=== PATIENT | female | born 1990 | race Caucasian/White ===

== ENCOUNTER 2017-12-22 20:22 | Emergency (ER) | payer OTHER ==
[2017-12-22] MEDS ORDERED: HYDROCODONE/APAP 5/325 MG TAB ONE (20:57)
[2017-12-22 21:39] LABS: Absolute Lymphocytes (CBC) 3.3 K/uL (0.7-4.9); Absolute Monocytes 0.6 K/uL (0.1-1.3); Absolute Neutrophil 8.2 K/uL (1.8-8.0); Basophils % 0.6 % (0-1.3); Hematocrit 40.3 % (36.0-45.0); Lymphocytes % 26.6 % (15.3-44.8); MCH 24.6 pg (27.0-35.0); MCV 76.8 fL (80-100); MPV 10.6 fL (7.6-11.3); Monocytes % 5.1 % (3.3-12.3); RBC Red Blood Cell Count 5.25 M/uL (3.86-4.86)
[2017-12-22 21:45] LABS: Urine Blood NEGATIVE (NEG); Urine Glucose NEGATIVE (NEG); Urine Protein 1+ (NEG); Urine pH 5.5 (5.0-7.0)
[2017-12-22] MEDS ORDERED: KETOROLAC 30 MG/ML INJ ONE (21:53)
[2017-12-22 21:54] LABS: Protime INR 1.08
[2017-12-22 22:12] LABS: ALT/SGPT 17 U/L (12-78); AST/SGOT 19 U/L (15-37); Albumin 4.1 g/dL (3.4-5.0); Alkaline Phosphatase 55 U/L (45-117); BUN Blood Urea Nitrogen 12 mg/dL (7-18); Bicarbonate 24 mmol/L (21-32); Bilirubin Direct 0.1 mg/dL (0-0.2); Bilirubin Total 0.7 mg/dL (0.2-1.0); CKMB Creatine Kinase MB < 1.0 ng/mL (0.3-3.6); Creatine Phosphokinase 70 U/L (26-192); Glucose Level 101 mg/dL (74-106); NT PRO-BNP 14 pg/mL (<125); Potassium 3.8 mmol/L (3.5-5.1); Protein, Total 8.4 g/dL (6.4-8.2); Sodium Level 138 mmol/L (136-145)
--- NOTE | 2017-12-22 23:02 | RAD REPORT ---
EXAM DESCRIPTION: RAD - Chest Single View - 12/22/2017 10:00 pm CLINICAL HISTORY: CHEST PAIN Chest pain. COMPARISON: No comparisons FINDINGS: Portable technique limits examination quality. The lungs are grossly clear. The heart is normal in size. No displaced fractures. IMPRESSION: No acute intrathoracic process suspected.
--- NOTE | 2017-12-22 23:09 | EDPHYS ---
Physician Documentation [facility] Name: Blanca Geller Age: 27 yrs Sex: Female : 1990 Arrival Date: 12/22/2017 Time: 20:26 Bed 26 Private MD: ED Physician Anand Hassan HPI: 12/22 20:49 This 27 yrs old Female presents to ER via Wheelchair with complaints of Chest kav Pain. 20:49 Onset: The symptoms/episode began/occurred acutely, 2 hour(s) ago. Associated signs and kav symptoms: The patient has no apparent associated signs or symptoms, Pertinent negatives: abdominal pain, fever, headache. Modifying factors: The patient symptoms are alleviated by nothing, the patient symptoms are aggravated by nothing. The patient has not experienced similar symptoms in the past. The patient has not recently seen a physician. 20:50 The patient or guardian reports chest pain that is located primarily in the substernal kav area. The pain does not radiate. The chest pain is described as stabbing. Duration: The patient or guardian reports a single episode, that is still ongoing. Modifying factors: The symptoms are alleviated by nothing. Severity of pain: At its worst the pain was moderate just prior to arrival. Chest pain occurred with activity at work.. 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 - Social history:: Smoking status: Patient/guardian denies using tobacco. - Ebola Screening: : No symptoms or risks identified at this time. - Family history:: not pertinent. - Hospitalizations: : No recent hospitalization is reported. ROS: 21:02 Constitutional: Negative for fever, chills, and weight loss, Eyes: Negative for injury, kav pain, redness, and discharge, ENT: Negative for injury, pain, and discharge, Neck: Negative for injury, pain, and swelling, Respiratory: Negative for shortness of breath, cough, wheezing, and pleuritic chest pain, Abdomen/GI: Negative for abdominal pain, nausea, vomiting, diarrhea, and constipation, Back: Negative for injury and pain, : Negative for injury, bleeding, discharge, and swelling, MS/Extremity: Negative for injury and deformity, Skin: Negative for injury, rash, and discoloration, Neuro: Negative for headache, weakness, numbness, tingling, and seizure, Psych: Negative for depression, anxiety, suicide ideation, homicidal ideation, and hallucinations, Allergy/Immunology: Negative for hives, rash, and allergies, Endocrine: Negative for neck swelling, polydipsia, polyuria, polyphagia, and marked weight changes, Hematologic/Lymphatic: Negative for swollen nodes, abnormal bleeding, and unusual bruising. 21:02 Cardiovascular: Positive for chest pain, of the left breast. Exam: 21:02 Constitutional: This is a well developed, well nourished patient who is awake, alert, kav and in no acute distress. Head/Face: Normocephalic, atraumatic. Eyes: Pupils equal round and reactive to light, extra-ocular motions intact. Lids and lashes normal. Conjunctiva and sclera are non-icteric and not injected. Cornea within normal limits. Periorbital areas with no swelling, redness, or edema. ENT: Nares patent. No nasal discharge, no septal abnormalities noted. Tympanic membranes are normal and external auditory canals are clear. Oropharynx with no redness, swelling, or masses, exudates, or evidence of obstruction, uvula midline. Mucous membranes moist. Neck: Trachea midline, no thyromegaly or masses palpated, and no cervical lymphadenopathy. Supple, full range of motion without nuchal rigidity, or vertebral point tenderness. No Meningismus. Chest/axilla: Normal chest wall appearance and motion. Nontender with no deformity. No lesions are appreciated. Respiratory: Lungs have equal breath sounds bilaterally, clear to auscultation and percussion. No rales, rhonchi or wheezes noted. No increased work of breathing, no retractions or nasal flaring. Abdomen/GI: Soft, non-tender, with normal bowel sounds. No distension or tympany. No guarding or rebound. No evidence of tenderness throughout. Back: No spinal tenderness. No costovertebral tenderness. Full range of motion. Skin: Warm, dry with normal turgor. Normal color with no rashes, no lesions, and no evidence of cellulitis. MS/ Extremity: Pulses equal, no cyanosis. Neurovascular intact. Full, normal range of motion. Neuro: Awake and alert, GCS 15, oriented to person, place, time, and situation. Cranial nerves II-XII grossly intact. Motor strength 5/5 in all extremities. Sensory grossly intact. Cerebellar exam normal. Normal gait. Psych: Awake, alert, with orientation to person, place and time. Behavior, mood, and affect are within normal limits. 21:02 Cardiovascular: Rate: normal. 21:02 ECG was reviewed by the Attending Physician. nsr Vital Signs: 20:34 BP 140 / 95; Pulse 84; Resp 18; Temp 98.4(O); Pulse Ox 100% on R/A; Weight 97.52 kg; lp1 Height 5 ft. 7 in. (170.18 cm); Pain 9/10; 21:30 BP 136 / 80; Pulse 67; Resp 13; Pulse Ox 100% on R/A; Pain 8/10; lp1 22:00 BP 119 / 77; Pulse 70; Resp 16; Pulse Ox 100% on R/A; lp1 22:45 BP 120 / 64; Pulse 68; Resp 18; Pulse Ox 99% on R/A; Pain 2/10; lp1 20:34 Body Mass Index 33.67 (97.52 kg, 170.18 cm) lp1 MDM: 20:27 Medical screening is not applicable. kav 21:02 Differential diagnosis: acute myocardial infarction, anxiety, chest wall pain. Data kav reviewed: vital signs, nurses notes. 21:23 ED course: awaiting lab work. kav 21:57 Transition of care: After a detail discussion of the patient's case, care is kav transferred to Anand [place]. 12/22 20:37 Order name: CBC with Diff; Complete Time: 21:49 [facility] 12/22 23:05 Interpretation: Normal except: WBC 12.5; RBC 5.25; MCV 76.8; MCH 24.6; RDW 16.2; NEUT A cp 8.2. 12/22 20:37 Order name: CMP; Complete Time: 23:04 ka 12/22 23:04 Interpretation: Normal except: TP 8.4; A/G 1.0; GLOB 4.3. cp 12/22 20:54 Order name: Ckmb; Complete Time: 23:04 [facility] 12/22 20:54 Order name: CPK; Complete Time: 23:04 v 12/22 20:54 Order name: LFT's; Complete Time: 23:04 v 12/22 20:54 Order name: Magnesium; Complete Time: 23:04 v 12/22 20:54 Order name: NT PRO-BNP; Complete Time: 23:04 v 12/22 20:54 Order name: PT-INR; Complete Time: 23:04 12/22 23:05 Interpretation: Abnormal: PT 12.8. cp 12/22 20:54 Order name: Ptt, Activated; Complete Time: 23:04 v 12/22 20:54 Order name: Troponin (emerg Dept Use Only); Complete Time: 23:v 12/22 20:54 Order name: XRAY Chest (1 view); Complete Time: 23:v 12/22 21:40 Order name: Urine Dipstick--Ancillary (enter results); Complete Time: 21:49 [facility] 12/22 23:05 Interpretation: Normal except: UKET 2+; UPROT 1+. cp 12/22 21:40 Order name: Urine --Ancillary (enter results); Complete Time: 21:49 2 12/22 20:37 Order name: Urine Dipstick-Ancillary (obtain specimen); Complete Time: 21:30 v 12/22 20:54 Order name: Urine Test (obtain specimen); Complete Time: 21:30 v 12/22 20:54 Order name: EKG; Complete Time: 21:18 v 12/22 20:54 Order name: Cardiac monitoring; Complete Time: 20:57 v 12/22 20:54 Order name: EKG - Nurse/Tech; Complete Time: 20:57 v 12/22 20:54 Order name: IV Saline Lock; Complete Time: 21:29 v 12/22 20:54 Order name: Labs collected and sent; Complete Time: 21:29 v 12/22 20:54 Order name: O2 Per Protocol; Complete Time: 20:57 v 12/22 20:54 Order name: O2 Sat Monitoring; Complete Time: 20:57 kav Administered Medications: 20:52 CANCELLED (wrong patient): Bactrim (160 mg-800 mg (DS) 1 tablet PO once kav 20:57 Drug: [place] 5 mg-325 mg 1 tabs Route: PO; lp1 21:30 Follow up: Response: Pain is unchanged, physician notified lp1 21:55 Drug: TORadol 30 mg Route: IVP; Site: right forearm; lp1 23:12 Follow up: Response: Pain is decreased lp1 Disposition: 12/23 06:54 Co-signature as Attending Physician, Anand Hassan MD I agree with the assessment and marcello plan of care. Disposition: 12/22/17 23:08 Discharged to Home. Impression: Chest pain, unspecified. - Condition is Stable. - Discharge Instructions: Nonspecific Chest Pain, Chest Wall Pain. - Prescriptions for Prilosec 20 mg Oral Capsule - take 1 capsule by ORAL route once daily; 10 capsule. ketorolac 10 mg Oral tablet - take 1 tablet by ORAL route every 8 hours for 5 days for up to 5 days total use; 15 tablet. - Work release form, Medication Reconciliation Form, Thank You Letter, Antibiotic Education, Prescription Opioid Use form. - Follow up: Private Physician; When: 2 - 3 days; Reason: Recheck today's complaints, Continuance of care, Re-evaluation by your physician. Follow up: Josias Ortiz; When: 1 - 2 days; Reason: Recheck today's complaints, Continuance of care, Re-evaluation by your physician. - Problem is new. - Symptoms have improved. Signatures: Dispatcher [employer] Anand Walls MD MD cha Vern, Katherine, ATHLETIC EVENTS SCORER ATHLETIC EVENTS SCORER Tania Wilkinson, JAMI RN lp1 Anand Hughes PA PA cp Corrections: (The following items were deleted from the chart) 12/22 20:52 20:37 Bactrim (160 mg-800 mg (DS) 1 tablet PO once ordered. kav kav 21:20 21:18 BASIC METABOLIC PANEL+C.LAB.BRZ ordered. EDMS EDMS 23:04 23:04 Normal except: TP 8.4. cp cp 23:04 23:04 Normal except: TP 8.4; A/G 1.0. cp cp 23:31 23:08 12/22/2017 23:08 Discharged to Home. Impression: Chest pain, unspecified. lp1 Condition is Stable. Discharge Instructions: Nonspecific Chest Pain, Chest Wall Pain. Prescriptions for Ibuprofen 800 mg Oral Tablet - take 1 tablet by ORAL route every 8 hours As needed take with food; 30 tablet, Prilosec 20 mg Oral Capsule - take 1 capsule by ORAL route once daily; 10 capsule. and Forms are Medication Reconciliation Form, Thank You Letter, Antibiotic Education, Prescription Opioid Use. Follow up: Private Physician; When: 2 - 3 days; Reason: Recheck today's complaints, Continuance of care, Re-evaluation by your physician. Follow up: Josias Ortiz; When: 1 - 2 days; Reason: Recheck today's complaints, Continuance of care, Re-evaluation by your physician. Problem is new. Symptoms have improved. cp
--- NOTE | 2017-12-22 23:09 | ER ---
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 Transition of care: patient was not received from another setting of care. Onset of symptoms was December 22, 2017 at 20:00. Risk Assessment: Do you want to hurt yourself or someone else? Patient reports no desire to harm self or others. Initial Sepsis Screen: Does the patient meet any 2 criteria? No. Patient's initial sepsis screen is negative. Does the patient have a suspected source of infection? No. Patient's initial sepsis screen is negative. Care prior to arrival: None. 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 - Social history:: Smoking status: Patient/guardian denies using tobacco. - Ebola Screening: : No symptoms or risks identified at this time. - Family history:: not pertinent. - Hospitalizations: : No recent hospitalization is reported. Screenin:58 Abuse screen: Denies threats or abuse. Denies injuries from another. Nutritional lp1 screening: No deficits noted. Tuberculosis screening: No symptoms or risk factors identified. Fall Risk None identified. Assessment: 20:35 General: Appears uncomfortable, Behavior is anxious, crying. Pain: Complains of pain in lp1 chest Pain radiates to back Pain currently is 9 out of 10 on a pain scale. Quality of pain is described as sharp, Pain began suddenly, Aggravated by increased activity. Neuro: Level of Consciousness is awake, alert, obeys commands. Cardiovascular: Capillary refill < 3 seconds in bilateral fingers toes Patient's skin is warm and dry. Respiratory: Airway is patent Respiratory effort is even, unlabored, Breath sounds are clear bilaterally. GI: Abdomen is non-distended. : No signs and/or symptoms were reported regarding the genitourinary system. EENT: No signs and/or symptoms were reported regarding the EENT system. Derm: Skin is pink, warm \T\ dry. Musculoskeletal: Circulation, motion, and sensation intact. 21:30 Reassessment: Patient ambulated to bathroom, crying states pain aggravated; relieved by lp1 lying down. 22:30 Reassessment: Patient and/or family updated on plan of care and expected duration. Pain lp1 level reassessed. Patient states chest pain relief from medication administered Patient states feeling better. Patient states symptoms have improved. Vital Signs: 20:34 BP 140 / 95; Pulse 84; Resp 18; Temp 98.4(O); Pulse Ox 100% on R/A; Weight 97.52 kg; lp1 Height 5 ft. 7 in. (170.18 cm); Pain 9/10; 21:30 BP 136 / 80; Pulse 67; Resp 13; Pulse Ox 100% on R/A; Pain 8/10; lp1 22:00 BP 119 / 77; Pulse 70; Resp 16; Pulse Ox 100% on R/A; lp1 22:45 BP 120 / 64; Pulse 68; Resp 18; Pulse Ox 99% on R/A; Pain 2/10; lp1 20:34 Body Mass Index 33.67 (97.52 kg, 170.18 cm) lp1 ED Course: 20:26 Patient arrived in ED. es 20:26 Callie Foreman FNP is PHCP. kav 20:27 Anand Hassan MD is Attending Physician. kav 20:32 Tania Ferreira, JAMI is Primary Nurse. lp1 20:34 Triage completed. lp1 20:34 Arm band placed on. lp1 20:36 Patient has correct armband on for positive identification. Placed in gown. Bed in low lp1 position. Call light in reach. emission specialist on. Pulse ox on. NIBP on. 20:36 Patient maintains SpO2 saturation greater than 95% on room air. lp1 20:50 Missed attempt(s): 22 gauge in right antecubital area. jp3 20:55 Initial lab(s) drawn, by me, sent to lab. Missed attempt(s): 22 gauge in left jp3 antecubital area. Inserted saline lock: 24 gauge in right forearm, using aseptic technique. Blood collected. 20:57 EKG done, by ED staff, reviewed by Anand Hassan MD. lp1 21:00 Inserted saline lock: 24 gauge in right forearm, using aseptic technique. Blood jp3 collected. 21:25 Initial lab(s) drawn, by me, sent to lab. Urine collected: clean catch specimen, clear, jp3 mimi colored. 21:56 X-ray completed. Portable x-ray completed in exam room. Patient tolerated procedure ml well. 21:57 XRAY Chest (1 view) In Process Unspecified. EDMS 22:13 PHCP role handed off by Callie Foreman FNP cp 22:13 Anand Hughes PA is PHCP. cp 23:08 Josias Ortiz MD is Referral Physician. cp 23:13 No provider procedures requiring assistance completed. lp1 23:31 IV discontinued, No redness/swelling at site. Pressure dressing applied. lp1 Administered Medications: 20:52 CANCELLED (wrong patient): Bactrim (160 mg-800 mg (DS) 1 tablet PO once kav 20:57 Drug: Normal 5 mg-325 mg 1 tabs Route: PO; lp1 21:30 Follow up: Response: Pain is unchanged, physician notified lp1 21:55 Drug: TORadol 30 mg Route: IVP; Site: right forearm; lp1 23:12 Follow up: Response: Pain is decreased lp1 Outcome: 23:08 Discharge ordered by . cp 23:30 Discharged to home ambulatory, with significant other. lp1 23:30 Condition: stable 23:30 Discharge instructions given to patient, Instructed on discharge instructions, follow up and referral plans. medication usage, Demonstrated understanding of instructions, follow-up care, medications, Prescriptions given X 2. 23:31 Patient left the ED. lp1 Signatures: Dispatcher [employer] EDMS Callie Foreman FNP FEED MIXERLetitia Alcaraz Melissa ml Pena, Laura, RN RN lp1 Anand Hughes PA PA cp Pisarski, Jacob jp3 Corrections: (The following items were deleted from the chart) 23:25 21:57 Report given to JAMI Alex lp1 lp1
[2017-12-22 23:35] VITALS: TEMP 98.4
[2017-12-22 23:38] VITALS: BP 120/64; O2SAT 99
--- NOTE | 2017-12-23 06:48 | EKG ---
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
== END 2017-12-22 23:31 | disposition home or self-care (01) ==
LOC: ER 20:22
DX: R07.9 Chest pain, unspecified (principal); E11.9 Type 2 diabetes mellitus without complications; Z79.4 Long term (current) use of insulin
CPT/HCPCS: 36415; 71045; 80053; 81003; 81025; 82248; 82550; 82553; 83735; 83880; 84484; 85025; 85610; 85730; 93005; 96374; 99285